=== PATIENT | male | born 1985 | race Caucasian/White ===

== ENCOUNTER 2017-04-13 11:35 | Emergency (ER) ==
[2017-04-13 11:41] VITALS: BP 136/78; TEMP 97.9; BMI 27.2
[2017-04-13] MEDS ORDERED: ROCEPHIN IM STA (11:59)
[2017-04-13] MEDS ORDERED: LIDOCAINE 1 % AMP 5 ML (SUTURES) IM STA (11:59)
--- NOTE | 2017-04-13 12:01 | ED.PDOC ---
General ED Provider: Dr. CALEB BAXTER Chief Complaint: Bite Stated Complaint: left forearm abscess Time Seen by Physician: 11:45 (was in the wood thinks we has bitten by a spider ) Mode of Arrival: Walk-In Information Source: Patient Exam Limitations: No limitations Primary Care Provider: JERMAINE TORRE Nursing and Triage Documentation Reviewed and Agree: Yes Review of Systems - Review Of Systems Constitutional: Reports: No symptoms Eyes: Reports: No symptoms Ears, Nose, Mouth, Throat: Reports: No symptoms Respiratory: Reports: No symptoms Cardiac: Reports: No symptoms GI: Reports: No symptoms : Reports: No symptoms Musculoskeletal: Reports: No symptoms Skin: Reports: Other (abscess left forearm see photos) Neurological: Reports: No symptoms Endocrine: Reports: No symptoms Hematologic/Lymphatic: Reports: No symptoms All Other Systems: Reviewed and Negative Past Medical History - Past Medical History Previously Healthy: Yes Endocrine: Reports: None, DM 2 Cardiovascular: Reports: None Respiratory: Reports: None Hematological: Reports: None Gastrointestinal: Reports: None Genitourinary: Reports: None Neuro/Psych: Reports: None Musculoskeletal: Reports: None Cancer: Reports: None - Surgical History General Surgical History: Reports: None - Family History Family History: Reports: None - Social History Smoking Status: Never smoker Hx Substance Use: No Alcohol Screening: None - Immunizations Tetanus Shot up to Date: Yes (3 months ago) Physical Exam - Physical Exam Appearance: Well-appearing, No pain distress, Well-nourished Eyes: LENORA, EOMI, Conjunctiva clear ENT: Ears normal, Nose normal, Oropharynx normal Respiratory: Airway patent, Breath sounds clear, Breath sounds equal, Respirations nonlabored Cardiovascular: RRR, Pulses normal, No rub, No murmur GI/: Soft, Nontender, No masses, Bowel sounds normal, No Organomegaly Musculoskeletal: Normal strength, ROM intact, No edema, No calf tenderness Skin: Warm, Dry (2 cm pustule none pointing forearm see photos) Neurological: Sensation intact, Motor intact, Reflexes intact, Cranial nerves intact, Alert, Oriented Psychiatric: Affect appropriate, Mood appropriate Critical Care Note - Critical Care Note Total Time (mins): 0 Course - Course Vital Signs: Temp Pulse Resp BP Pulse Ox 04/13/17 11:35 97.9 F 94 H 20 136/78 98 Departure - Departure Time of Disposition: 12:01 Disposition: HOME SELF-CARE Discharge Problem: Abscess Instructions: Abscess (ED) Condition: Good Pt referred to PMD for follow-up: Yes Allergies/Adverse Reactions: Allergies No Known Allergies Allergy (Unverified 04/13/17 11:42) Home Medications: Ambulatory Orders Alprazolam [Xanax] 1 mg PO TID 04/13/17 Insulin Glargine,Hum.rec.anlog [Lantus] 43 unit SUBCUT BEDTIME 04/13/17 Insulin Lispro [Humalog] 100 unit SQ DIRECTED 04/13/17 Pregabalin [Lyrica] 25 mg PO DAILY 04/13/17 Sulfamethoxazole/Trimethoprim [Bactrim Ds 800/160 mg] 1 tab PO Q12HR #14 tablet 04/13/17
== END 2017-04-13 12:41 | disposition home or self-care (01) ==
LOC: ED 11:35
DX: L02.414 Cutaneous abscess of left upper limb (principal)
CPT/HCPCS: 96372; 99282

== ENCOUNTER 2017-07-05 13:23 | Outpatient (CLI) ==
[2017-07-05 13:53] LABS: BASOPHILS % (AUTO) 0.5 % (0.0-3.0); EOSINOPHILS # (AUTO) 0.1 K/ul (0.0-0.7); EOSINOPHILS % (AUTO) 1.7 % (0.0-7.0); HEMATOCRIT 45.7 % (42.0-52.0); HEMOGLOBIN 15.8 g/dl (14.0-18.0); IMMATURE GRANULOCYTE % (AUTO) 0.2 % (0.0-5.0); LYMPHOCYTES # (AUTO) 3.5 K/uL (0.60-3.4); LYMPHOCYTES % (AUTO) 42.8 (10.0-50.0); MEAN CORPUSCULAR HEMOGLOBIN 30.2 pg (27.0-31.0); MEAN CORPUSCULAR HGB CONC 34.6 (31.8-35.4); MEAN CORPUSCULAR VOLUME 87.4 fl (80.0-94.0); MONOCYTES # (AUTO) 0.5 K/uL (0.4-2.0); MONOCYTES % (AUTO) 6.1 (0-10); NEUTROPHILS % (AUTO) 48.7; PLATELET COUNT 277 10^3/uL (140-440); RED BLOOD COUNT 5.23 10^6/ul (4.70-6.10); WHITE BLOOD COUNT 8.15 K/ul (4.2-10.2)
[2017-07-05 14:04] LABS: BILIRUBIN,URINE Negative (NEGATIVE); KETONES,URINE Negative (NEGATIVE); LEUKOCYTE ESTERASE ,URINE Negative (NEGATIVE); NITRITE,URINE Negative (NEGATIVE); PROTEIN,URINE Negative (NEGATIVE); URINE, BLOOD Negative (NEGATIVE)
[2017-07-05 14:05] LABS: ADD URINE MICROSCOPIC NO
[2017-07-05 14:35] LABS: ALBUMIN 3.8 g/dL (3.4-5.0); ALBUMIN/GLOBULIN RATIO 1.03; ANION GAP 12.4; BILIRUBIN,DIRECT 0.34 mg/dL (0.00-0.30); BILIRUBIN,TOTAL 0.73 mg/dL (0.00-1.20); BUN/CREATININE RATIO 14.43; CALCIUM 10.2 mg/dL (8.2-10.2); CHOL/HDL RATIO 2.2 (4.5-6.4); CREATININE 0.97 mg/dL (0.60-1.10); PHOSPHORUS 3.2 mg/dL (2.5-4.9); POTASSIUM 4.4 mmol/L (3.5-5.1); TOTAL PROTEIN 7.5 g/dL (6.4-8.2)
[2017-07-06 06:11] LABS: TESTOSTERONE 715 ng/dL (264-916)
[2017-07-06 10:00] LABS: URINE MALB/CR RATIO < 4.1 mg/g creat (0.0-30.0)
[2017-07-07 02:13] LABS: FREE TESTOSTERONE 25.1 pg/mL (9.3-26.5)
== END 2017-07-05 13:24 | disposition home or self-care (01) ==
LOC: LAB 13:23
PROVIDERS: ATTEND Nurse Practitioner
DX: E10.65 Type 1 diabetes mellitus with hyperglycemia (principal); E11.40 Type 2 diabetes mellitus with diabetic neuropathy, unspecified; F41.9 Anxiety disorder, unspecified; L84 Corns and callosities; R25.1 Tremor, unspecified; R37 Sexual dysfunction, unspecified; Z00.00 Encounter for general adult medical examination without abnormal findings; Z51.81 Encounter for therapeutic drug level monitoring; Z79.899 Other long term (current) drug therapy
CPT/HCPCS: 36415; 80053; 80061; 81001; 82043; 82248; 83036; 84100; 84402; 84403; 84443; 85025

== ENCOUNTER 2017-10-25 13:07 | Outpatient (CLI) ==
--- NOTE | 2017-10-25 13:56 | DI ---
EXAM: Chest two view, frontal and lateral views. HISTORY: Chest pain. COMPARISON: 10/11/2011. FINDINGS: The heart size is normal. There is no pulmonary vascular congestion. The lungs are clear . No pleural effusion or pneumothorax is seen. No acute osseous abnormality identified. Since the prior study, there has been no significant interval change. IMPRESSION: No acute cardiopulmonary process.
--- NOTE | 2017-10-25 14:01 | DI ---
Exam: Four x-rays of the left ribs. Comparison: 10/25/2017. Reason for exam: Pain. FINDINGS: No displaced left-sided rib fractures are seen. The cardiac silhouette is not enlarged. T he left hemithorax appears grossly unremarkable. Impression: No displaced left-sided rib fractures are seen.
== END 2017-10-25 13:08 | disposition home or self-care (01) ==
LOC: RAD 13:07
PROVIDERS: ATTEND Nurse Practitioner
DX: R07.81 Pleurodynia (principal)

== ENCOUNTER 2017-11-22 09:03 | Outpatient (CLI) | payer OTHER ==
--- NOTE | 2017-11-22 10:33 | CT ---
EXAM: CT chest without contrast HISTORY: Chest wall pain, fall COMPARISON: None TECHNIQUE: CT chest performed without intravenous contrast. Coronal and sagittal reformatted images obtained. FINDINGS: Thoracic inlet appears normal. Heart normal in size. No pericardial effusion. Aorta nor mal in caliber. Esophagus unremarkable. Evaluation for lymphadenopathy limited without contrast. N o lymphadenopathy identified. No acute abnormalities of the bones. There are nondisplaced fractures of the left third, fourth, sixth ribs with callus formation, likely subacute. Central airway patent . No airspace consolidation. Two pulmonary nodules right lung base, measuring up to 4 mm, images 32 and 36. No pleural effusion or pneumothorax. Please refer to separate report CT abdomen pelvis regar ding findings in the upper abdomen, noting a small gallstone versus adjacent calcification. IMPRESSION: 1. Subacute appearing fractures of the left third, fourth, sixth ribs. Otherwise, no acute traumati c injury identified in the chest. 2. Two pulmonary nodules at the right lung base, measuring up to [address] chest follow-up can be co nsidered in 12 months if patient at high risk for malignancy, such as a smoker or former smoker. Oth erwise, no follow-up recommended.
--- NOTE | 2017-11-22 10:36 | CT ---
EXAM: CT abdomen HISTORY: Pain after fall. TECHNIQUE: CT abdomen without contrast. Multiplanar images provided. FINDINGS: Comparison may be made to 05/16/2010. Diagnostic limitations exist without including contrast enhanced images. The liver and spleen are gr ossly unremarkable. Gallbladder, pancreas and adrenal glands appear normal. Kidneys and upper urete rs appear normal. Normal abdominal aorta. No gastric distension. No appendix identified within the field of view. Normal bowel gas pattern. No ascites. No ventral abdominal wall hernia. No peripheral soft tissue or abdominal wall hematoma. No acute cally ny finding or fracture. See also same day CT thorax report. IMPRESSION: No injuries identified.
== END 2017-11-22 09:04 | disposition home or self-care (01) ==
LOC: RAD 09:03
PROVIDERS: ATTEND Nurse Practitioner
DX: R07.89 Other chest pain (principal); R10.9 Unspecified abdominal pain; W18.00XA Striking against unspecified object with subsequent fall, initial encounter

== ENCOUNTER 2018-10-14 18:32 | Emergency (ER) | payer OTHER ==
[2018-10-14 18:38] VITALS: BP 135/68; TEMP 98.2; BMI 32.4
--- NOTE | 2018-10-14 19:41 | ED.PDOC ---
General ED Provider: Dr. LESTER ECHEVARRIA Chief Complaint: Wound Check Stated Complaint: lleft distal forearm medial surface small skin ouncture with surrounding halo of induration redness and discomfort.Forming cellulitis and subcutaneaous abscess.No fluctuation yet,Fubction of flexor tendond checked normal to all digits.No apparent compartment.Tetanus up to date on repeated questioning.Afebrile,non-toxic. Time Seen by Physician: 19:41 Mode of Arrival: Walk-In Information Source: Patient Exam Limitations: No limitations Nursing and Triage Documentation Reviewed and Agree: Yes (viotal signs treviewed -normal) Does patient meet sepsis criteria?: No System Inflammatory Response Syndrome: Not Applicable Sepsis Protocol: For patient's 13 years and over: Temp is 96.8 and below OR 101 and greater Pulse >90 BPM Resp >20/minute Acutely Altered Mental Status Are patient's symptoms suggestive of a new infection, such as: -Pneumonia -Skin, Soft Tissue -Endocarditis -UTI -Bone, Joint Infection -Implantable Device -Acute Abdominal Infection -Wound Infection -Meningitis -Blood Stream Catheter Infection -Unknown Skin Complaint Exam - Skin/Soft Tissue Complaint/Exam Onset/Duration: three days Symptoms Are: Still present Timing: Constant Initial Severity: Moderate Current Severity: Moderate Location: left distal medial forearm Character: Reports: Redness, Swelling Aggravating: Reports: Touch Alleviating: Reports: Heat, Medications Associated Signs and Symptoms: Reports: Itching, Drainage Related History: Reports: Similar episode Related Surgical History: Reports: None Recent Exposure to Others w/Similar Symptoms: No Skin Findings: Present: Erythema, Induration, Skin lesion Joint Tenderness Present: No Differential Diagnoses: Abscess, Cellulitis, Foreign Body Review of Systems - Review Of Systems Constitutional: Reports: No symptoms Eyes: Reports: No symptoms Ears, Nose, Mouth, Throat: Reports: No symptoms Respiratory: Reports: No symptoms Cardiac: Reports: No symptoms GI: Reports: No symptoms : Reports: No symptoms Musculoskeletal: Reports: No symptoms Skin: Reports: Lesions, Rash, Other Neurological: Reports: No symptoms Endocrine: Reports: No symptoms Hematologic/Lymphatic: Reports: No symptoms All Other Systems: Reviewed and Negative Past Medical History - Past Medical History Previously Healthy: Yes Endocrine: Reports: None, DM 2 Cardiovascular: Reports: None Respiratory: Reports: None Hematological: Reports: None Gastrointestinal: Reports: None Genitourinary: Reports: None Neuro/Psych: Reports: None Musculoskeletal: Reports: None Cancer: Reports: None - Surgical History General Surgical History: Reports: None - Family History Family History: Reports: None - Social History Smoking Status: Never smoker Hx Substance Use: No Alcohol Screening: None Physical Exam - Physical Exam Appearance: Well-appearing Ill-appearing: None Pain Distress: None Eyes: LENORA ENT: Ears normal Neck: Supple Respiratory: Airway patent Cardiovascular: RRR GI/: Soft Musculoskeletal: Normal strength Skin: Warm Neurological: Sensation intact, Cranial nerves intact Psychiatric: Affect appropriate Critical Care Note - Critical Care Note Total Time (mins): 0 Course - Course Orders, Labs, Meds: Orders Category Date Time Status Amoxicillin/Potassium Clav [Augmentin 875-125 mg Tab] MEDS 10/14/18 19:48 Discontinued 1 tab PO ONCE STA Medications Discontinued Medications Generic Name Dose Route Start Last Admin Trade Name Freq PRN Reason Stop Dose Admin Amoxicillin/Clavulanate Potassium 1 tab 10/14/18 19:48 10/14/18 20:15 Augmentin 875-125 Mg Tab PO 10/14/18 19:49 1 tab ONCE STA Administration Vital Signs: Temp Pulse Resp BP Pulse Ox 10/14/18 18:32 98.2 F 89 16 135/68 97 Departure - Departure Time of Disposition: 19:30 Disposition: HOME SELF-CARE Discharge Problem: Cellulitis of forearm, left Instructions: Cellulitis (ED) Condition: Good Pt referred to PMD for follow-up: Yes (follow with PCP of choice or [facility] to ER within 48 h prn.) IPMP verified?: No Additional Instructions: patient educated on compartrment syndrome and need to take meds IF NOT BETTER WITHIN 48hrs, may return Augmentin 875-125mg 1 tab by mouth twice a day for 10 days Start medication in the am Allergies/Adverse Reactions: Allergies No Known Allergies Allergy (Verified 10/14/18 18:40) Home Medications: Ambulatory Orders Alprazolam [Xanax] 1 mg PO TID 04/13/17 Insulin Glargine,Hum.rec.anlog [Lantus] 44 unit SUBCUT BEDTIME 04/13/17 Insulin Lispro [Humalog] 100 unit SQ DIRECTED 04/13/17 Hydrocodone/Acetaminophen [Hydrocodon-Acetaminophn 10-325] 1 each PO QID Disposition Discussed With: Patient
[2018-10-14] MEDS ORDERED: AUGMENTIN 875-125 MG TAB PO STA (19:48)
== END 2018-10-14 20:19 | disposition home or self-care (01) ==
LOC: ED 18:32
DX: L03.114 Cellulitis of left upper limb (principal); E11.9 Type 2 diabetes mellitus without complications
CPT/HCPCS: 99282